=== PATIENT | male | born 1990 | race Caucasian/White ===

== ENCOUNTER 2020-11-02 09:37 | Emergency (ER) | payer OTHER ==
[~2020-11-02] VITALS: Ht 180.3 cm; Wt 123.5 kg
[2020-11-02 09:38] VITALS: BP 143/91
[2020-11-02] MEDS ORDERED: AUGM875T28 PO (12:46)
[2020-11-02] MEDS ORDERED: CIPR7.5D2 AS (12:46)
== END 2020-11-02 13:02 | disposition home or self-care (01) ==
LOC: M ED 09:37
DX: H60.92 Unspecified otitis externa, left ear (principal); H66.92 Otitis media, unspecified, left ear

== ENCOUNTER → 2021-11-17 | Outpatient (CLI) | payer OTHER ==
[~2021-11-17] MED LIST: AUGM875T28 PO; CIPR7.5D2 AS
[2021-11-17 10:51] LABS: PLATELET COUNT, AUTOMATED 301 10^3/uL (150-450)
[2021-11-17 11:02] LABS: INR 0.97; PROTHROMBIN TIME 13.3 SECONDS (12.7-14.5)
[2021-11-17 11:03] LABS: PARTIAL THROMBOPLASTIN TIME 26.3 SECONDS (25.9-37.0)
== END ==
LOC: M LAB 09:51
PROVIDERS: ATTEND Physician Assistant
DX: M54.16 Radiculopathy, lumbar region (principal)

== ENCOUNTER 2022-01-03 11:35 | Emergency (ER) | payer OTHER ==
[~2022-01-03] VITALS: Ht 180.3 cm; Wt 128.8 kg
[2022-01-03] MEDS ORDERED: GABA-1171 PO (18:17)
[2022-01-03] MEDS ORDERED: IBUP80TA PO (18:17)
[2022-01-03] MEDS ORDERED: ACET-683 PO (18:19)
[2022-01-03] MEDS ORDERED: KETOROLAC 60MG 2ML VIAL IM ONE (18:35)
[2022-01-03] MEDS ORDERED: methocarbamoL 750 MG TAB PO ONE (18:35)
[2022-01-03] MEDS ORDERED: traMADol 50 MG TAB PO ONE (18:35)
[2022-01-03] MEDS ORDERED: METH-1165 PO (18:41)
[2022-01-03] MEDS ORDERED: TRAM50TA2 PO (18:41)
[2022-01-03 19:20] VITALS: BP 140/90
== END 2022-01-03 19:24 | disposition home or self-care (01) ==
LOC: M ED 11:35
DX: G89.29 Other chronic pain (principal); M54.50 Low back pain, unspecified; Z79.899 Other long term (current) drug therapy
CPT/HCPCS: 96372; 99283; J1885